=== PATIENT | female | born 1945 | race Caucasian/White ===

== ENCOUNTER 2016-08-05 15:31 | Inpatient (IN) ==
[2016-08-05] MEDS: *HR* OxyCODONE Immed Rel 5 MG TABLET PO PRN ×3 (16:01→23:54)
[2016-08-05] MEDS: *HR* Enoxaparin 40 MG/0.4 ML SYRINGE SQ SCH (17:02)
[2016-08-05 17:53] LABS: Bilirubin,Urine Negative (Negative); Blood,Urine Small (Negative); Clarity,Urine Slightly Cloudy (Clear); Color,Urine Amber (Yellow); Glucose,Urine (UA) Normal (Normal); Ketones,Urine Trace mg/dL (Negative); Leukocyte Esterase,Urine Moderate (Negative); Nitrite,Urine Positive (Negative); Protein,Urine 30 mg/dL (Neg-Trace); Urobilinogen,Urine Normal (Normal)
[2016-08-05 17:58] LABS: Bacteria,Urine Many per hpf (None-Few); RBC,Urine 0-3 per hpf (0-3); Squamous Epithelial Cell,Urine Many per lpf (None-Few); WBC,Urine TNTC per hpf (0-3)
[2016-08-06] MEDS: *HR* OxyCODONE Immed Rel 5 MG TABLET PO PRN ×5 (04:06→21:33)
[2016-08-06] MEDS: *HR* Enoxaparin 40 MG/0.4 ML SYRINGE SQ SCH (04:06)
[2016-08-06 05:18] LABS: Basophils # 0.1 K/mcL (0.0-0.2); Basophils % 0.4 %; Eosinophils # 0.8 K/mcL (0.0-0.6); Eosinophils % 5.9 %; Hematocrit 30.3 % (35.3-44.9); Hemoglobin 9.8 g/dL (11.5-15.4); Immature Granulocytes % 0.8 % (0-4); Lymphocytes # 2.5 K/mcL (0.6-4.6); Lymphocytes % 17.8 %; Mean Corpuscular HGB Conc 32.3 g/dL (31.6-35.5); Mean Corpuscular Hemoglobin 28.8 pg (28.0-33.3); Mean Corpuscular Volume 89.1 fL (83.0-100.0); Mean Platelet Volume 9.6 fL (9.4-12.4); Neutrophils # 9.5 K/mcL (1.6-8.9); Platelet Count 242 K/mcL (140-400); Red Cell Distribution Width 14.4 % (11.5-14.5); Segmented Neutrophils % 68.1 %
[2016-08-06 05:29] LABS: BUN/Creatinine Ratio 19 (6-26); Blood Urea Nitrogen 14 mg/dL (7-20); Carbon Dioxide 24 mEq/L (19-29); Chloride 104 mEq/L (98-109); Glucose 118 mg/dL (70-99); Osmolality,Calculated 288 (280-300); Potassium 3.7 mEq/L (3.5-4.5); Sodium 138 mEq/L (136-145); eGFR For African Americans > 60 (> 60); eGFR For Non-African Americans > 60 (> 60)
[2016-08-06] MEDS: Aspirin Enteric Coated 325 MG Tablet PO SCH (08:19)
[2016-08-06] MEDS: *HR* Metformin 500 MG TABLET PO SCH (08:20)
[2016-08-06] MEDS: Acetaminophen 325 MG TABLET PO SCH (08:20)
--- NOTE | 2016-08-06 10:28 | Internal Med History&Physical ---
Date of Encounter: 08/06/16 Time of Encounter: 10:26 Assessment and Plan (1) S/P TKR (total knee replacement) Current visit: Yes Status: Acute We will hold off therapy while we will initiate anticoagulation for DVT. Qualifiers: Laterality: right Qualified Code(s): Z96.651 - Presence of right artificial knee joint (2) DVT (deep venous thrombosis) Current visit: Yes Status: Acute We will initiate Lovenox 1 mg/kg subcutaneous. Qualifiers: DVT location: lower extremity Affected thrombotic vein of extremity: tibial Laterality: right Chronicity: acute Qualified Code(s): I82.441 - Acute embolism and thrombosis of right tibial vein Internal Medicine - H&P: HPI Admitted From: Intrahospital Transfer Plans for Post Hospital Care: Home History of present illness: Ms. Higuera is a 70 year old female transferred to this facility status post right total knee replacement. On arrival last night the patient complained of right knee postop pain. She also complains of swelling and calf pain. Doppler studies was ordered. Results today noted a right saphenous DVT. Today the patient does not complain of any chest pain or shortness of breath. Pain is 5 out of 10. No nausea no vomiting. Past Med Surg Social Fam HX - Past Medical History Medical history: diabetes Psychiatric history: no psych history - Past Surgical History Surgical History: cholecystectomy, hysterectomy, knee replacement - Social History Smoking Status: Former smoker Smokeless Tobacco Status: No Alcohol use: occasionally Drug use: none Internal Medicine - H&P: Meds Aspirin Enteric Coated [Aspirin EC] 325 mg PO DAILY #21 tablet. 08/01/16 [Rx] OxyCODONE Immed Rel [Roxicodone 5 MG] 5 - 10 mg PO Q6HR PRN #40 tablet 08/01/16 [Rx] Acetaminophen [Tylenol] 650 mg PO DAILY 08/02/16 [History] Metformin [Glucophage] 500 mg PO DAILY 08/02/16 [History] Omeprazole 20 mg PO DAILY 08/02/16 [History] Allergies Penicillins [PCN] Allergy (Mild, Verified 08/02/16 10:53) Hives All Systems PM: A 10-system review of systems was performed and is negative for pertinent findings except as documented above in the HPI. - Constitutional Constitutional: fatigue, lethargy, malaise - Cardiovascular Cardiovascular ROS IM: no chest pain, no diaphoresis, no dyspnea, no lightheadedness, no palpitations, no syncope - Respiratory Respiratory: no cough, no dyspnea, no wheezing, no excessive phlegm production - Gastrointestinal Gastrointestinal: no abdominal pain, no diarrhea, no hematemesis, no hematochezia, no melena, no nausea, no vomiting - Musculoskeletal Musculoskeletal ROS IM: arthralgias, joint swelling, limited range of motion - Integumentary Integumentary IM: erythema - Constitutional Vitals: Temp Pulse Resp BP Pulse Ox 97.8 F 92 16 102/65 96 08/06/16 07:00 08/06/16 07:00 08/06/16 07:00 08/06/16 07:00 08/06/16 07:00 General appearance: Present: A&O X 3, morbidly obese, pleasant, no acute distress - Respiratory Respiratory exam: Present: CTAB. Absent: accessory muscle use, rales, rhonchi, wheezes - Cardiovascular Cardiovascular exam: Present: RRR, +S1, +S2. Absent: diastolic murmur, gallop, rubs, systolic murmur - GI/Abdominal GI/Abdominal exam: Present: normal bowel sounds, soft, no peritoneal signs. Absent: distended, tenderness - Expanded Lower Extremities Exam Lower Leg exam: Present: erythema, Dominic's sign, swelling, tenderness Internal Med - H&P Results - Labs CBC & Chem 7: 08/06/16 05:00 08/06/16 05:00 Labs: Short CBC 08/06/16 Range/Units 05:00 WBC 14.0 H (4.3-11.1) K/mcL Hgb 9.8 L (11.5-15.4) g/dL Hct 30.3 L (35.3-44.9) % Plt Count 242 (140-400) K/mcL Neutrophils # 9.5 H (1.6-8.9) K/mcL BMP 08/06/16 05:00 Sodium 138 Potassium 3.7 Chloride 104 Carbon Dioxide 24 BUN 14 Creatinine 0.73 Glucose 118 H Calcium 9.0 Urine 08/05/16 Range/Units 17:45 Urine Color Wendy A (Yellow) Urine Clarity Slightly Cloudy A (Clear) Urine pH 6.0 (5.0-8.0) pH Units Ur Specific [place] 1.020 (1.010-1.025) Urine Protein 30 H (Neg-Trace) mg/dL Urine Glucose (UA) Normal (Normal) mg/dL
[2016-08-06] MEDS: *HR* Enoxaparin 120 MG/0.8 ML SYRINGE SQ SCH ×2 (12:47→21:33)
[2016-08-06] MEDS ORDERED: Ondansetron ODT 4 MG TAB.RAPDIS SL PRN (13:45)
[2016-08-07] MEDS: *HR* OxyCODONE Immed Rel 5 MG TABLET PO PRN ×4 (02:51→20:37)
[2016-08-07] MEDS: Acetaminophen 325 MG TABLET PO SCH (09:30)
[2016-08-07] MEDS: *HR* Metformin 500 MG TABLET PO SCH (09:31)
[2016-08-07] MEDS: Aspirin Enteric Coated 325 MG Tablet PO SCH (09:31)
[2016-08-07] MEDS: *HR* Enoxaparin 120 MG/0.8 ML SYRINGE SQ SCH ×2 (09:32→20:38)
--- NOTE | 2016-08-07 13:23 | Venous Imaging Report ---
LE Venous Duplex Patient Name:Karishma Higuera Order Number:[id number] Procedure Date:08/06/2016 Date:1945ge:70 yrs Gender:Female Location:[facility] Room #: 104B Heating And Ventilating Drafter:Luz Maria Jauregui RVT, RDCS Referring MD:Herbert Loyola DO unloader:Catherine Cleaning, HUMAN SERVICES PROFESSIONAL Reading MD:Farhat Jimenez MD Primary Indications:swelling Secondary Indications: Risk Factors Yes/No Hx of DVT No Hormone Replacement Therapy No Anticoagulants No Impressions: Lower extremity abnormal deep exam: right peroneal vein and posterior tibial vein demonstrates acute thrombosis. Lower extremity abnormal superficial exam: right great saphenous BK demonstrates acute thrombosis. Recommendations: Test completed on 08/06/2016 at 10:12:27 am. Critical findings reported to Dr. Sorensen by phone at 10:12:36 am on 08/06/2016 by Luz Maria Jauregui RVT, RDCS. Findings Venous Duplex Results: Right: Venous imaging of the lower extremity reveals full patency and normal vessel compressibility of the right distal iliac, right common femoral, right superficial femoral, right popliteal, right saphenofemoral junction, right great saphenous above knee and right lesser saphenous. Doppler signals in the evaluated veins were normal. There is an acute occlusive thrombus seen in the right posterior tibial. It demonstrates an incompressible vein. Flow was absent and it did not augment. There is an acute occlusive thrombus seen in the right peroneal. It demonstrates an incompressible vein. Flow was absent and it did not augment. There is an acute occlusive thrombus seen in the right great saphenous below knee. It demonstrates an incompressible vein. Flow was absent and it did not augment. Left: Venous imaging of the lower extremity reveals full patency and normal vessel compressibility of the left common femoral. Doppler signals in the evaluated veins were normal. Lower Extremity Venous Duplex Side Vein Compress Spontaneous Flow Augment Diameter (cm) Depth (cm) Right Distal Iliac Normal Yes Phasic Yes Right Common Femoral Normal Yes Phasic Yes Right Superficial Femoral Normal Yes Phasic Yes Right Popliteal Normal Yes Phasic Yes Right Posterior Tibial None no Absent no Right Peroneal None no Absent no Right Saphenofemoral Junction Normal Yes Phasic Yes Right Great Saphenous AK Normal Yes Phasic Yes Right Great Saphenous BK None no Absent no Right Lesser Saphenous Normal Yes Phasic Yes Left Common Femoral Normal Yes Phasic Yes Updated by Farhat Jimenez MD on 08/07/2016 1:18:20 PM electronically signed on 08/07/2016 1:18:53 PM with status of Final
--- NOTE | 2016-08-07 17:35 | Internal Med Progress Note ---
Date of Encounter: 08/07/16 Time of Encounter: 17:30 - Assessment and plan (1) S/P TKR (total knee replacement) Current Visit: Yes Status: Acute Assessment and plan: PT OT planned to improve gait transfer balance Qualifiers: Laterality: right Qualified Code(s): Z96.651 - Presence of right artificial knee joint (2) DVT (deep venous thrombosis) Current Visit: Yes Status: Acute Assessment and plan: Less swelling and tenderness. On Lovenox. PT OT being held Qualifiers: DVT location: lower extremity Affected thrombotic vein of extremity: tibial Laterality: right Chronicity: acute Qualified Code(s): I82.441 - Acute embolism and thrombosis of right tibial vein (3) UTI (urinary tract infection) Current Visit: Yes Status: Acute Assessment and plan: We will start Cipro. Gram-negative Escherichia coli on culture Qualifiers: Urinary tract infection type: acute cystitis Hematuria presence: without hematuria Qualified Code(s): N30.00 - Acute cystitis without hematuria - Time Spent With Patient less than 15 minutes - Subjective Interval history: Feeling better today. Less pain on the right knee. No fever. No shortness of breath. No chest pain. Good oral intake. - Constitutional Vitals: Temp Pulse Resp BP Pulse Ox 97.4 F L 84 14 110/62 97 08/07/16 07:00 08/07/16 07:00 08/07/16 07:00 08/07/16 07:00 08/07/16 07:00 General appearance: Present: A&O X 3, morbidly obese, pleasant, no acute distress - Respiratory Respiratory exam: Present: CTAB. Absent: accessory muscle use, rales, rhonchi, wheezes - Cardiovascular Cardiovascular exam: Present: RRR, +S1, +S2. Absent: diastolic murmur, gallop, rubs, systolic murmur - GI/Abdominal GI/Abdominal exam: Present: normal bowel sounds, soft, no peritoneal signs. Absent: distended, tenderness - Expanded Lower Extremities Exam Knee exam: Present: erythema, swelling, tenderness. Absent: warmth - Neurological Exam Neurological exam: Present: CN II-XII intact, oriented X3, no focal deficits. Absent: pronater drift, facial droop, speech deficit Internal Medicine: Result - Labs CBC & Chem 7: 08/06/16 05:08/06/16 05:00 Consult Discharge Plan - Plan Referrals: Catherine Cleaning, [place] [Primary Care Provider] -
[2016-08-08] MEDS: *HR* OxyCODONE Immed Rel 5 MG TABLET PO PRN ×4 (03:33→19:53)
[2016-08-08] MEDS: Acetaminophen 325 MG TABLET PO SCH (08:47)
[2016-08-08] MEDS: *HR* Metformin 500 MG TABLET PO SCH (08:47)
[2016-08-08] MEDS: Aspirin Enteric Coated 325 MG Tablet PO SCH (08:47)
[2016-08-08] MEDS: *HR* Enoxaparin 120 MG/0.8 ML SYRINGE SQ SCH ×2 (09:02→19:54)
--- NOTE | 2016-08-08 09:05 | Internal Med Progress Note ---
Date of Encounter: 08/08/16 Time of Encounter: 09:04 - Assessment and plan (1) S/P TKR (total knee replacement) Current Visit: Yes Status: Acute Assessment and plan: We will tryvisine for her complaint of right eye pain and itchiness PT OT planned to improve gait transfer balance Qualifiers: Laterality: right Qualified Code(s): Z96.651 - Presence of right artificial knee joint (2) DVT (deep venous thrombosis) Current Visit: Yes Status: Acute Assessment and plan: Less swelling and tenderness. On Lovenox. PT OT being held Qualifiers: DVT location: lower extremity Affected thrombotic vein of extremity: tibial Laterality: right Chronicity: acute Qualified Code(s): I82.441 - Acute embolism and thrombosis of right tibial vein (3) UTI (urinary tract infection) Current Visit: Yes Status: Acute Assessment and plan: We will start Cipro. Gram-negative Escherichia coli on culture Qualifiers: Urinary tract infection type: acute cystitis Hematuria presence: without hematuria Qualified Code(s): N30.00 - Acute cystitis without hematuria - Time Spent With Patient less than 15 minutes - Subjective Interval history: Complains of itchiness to the right eye. No blurred vision. No headache. Feeling better today. Less pain on the right knee. No fever. No shortness of breath. No chest pain. Good oral intake. - Constitutional Vitals: Temp Pulse Resp BP Pulse Ox 98.2 F 79 18 108/68 93 L 08/08/16 07:00 08/08/16 07:00 08/08/16 07:00 08/08/16 07:00 08/08/16 07:00 General appearance: Present: A&O X 3, morbidly obese, pleasant, no acute distress - Eye Eye exam: Present: PERRL, conjuntiva pink, sclera anicteric Pupils: Present: PERRL - Respiratory Respiratory exam: Present: CTAB. Absent: accessory muscle use, rales, rhonchi, wheezes - Cardiovascular Cardiovascular exam: Present: RRR, +S1, +S2. Absent: diastolic murmur, gallop, rubs, systolic murmur - GI/Abdominal GI/Abdominal exam: Present: normal bowel sounds, soft, no peritoneal signs. Absent: distended, tenderness - Expanded Lower Extremities Exam Knee exam: Present: swelling, tenderness. Absent: erythema, warmth Internal Medicine: Result - Labs CBC & Chem 7: 08/06/16 05:00 08/06/16 05:00 Consult Discharge Plan - Plan Referrals: Catherine Cleaning CNP [Primary Care Provider] -
[2016-08-08] MEDS: Tetrahydrozoline 15 ML BOTTLE RIGHT EYE PRN (21:37)
[2016-08-09] MEDS: *HR* OxyCODONE Immed Rel 5 MG TABLET PO PRN ×5 (02:32→23:42)
[2016-08-09 05:30] LABS: Basophils # 0.1 K/mcL (0.0-0.2); Basophils % 0.4 %; Eosinophils # 0.9 K/mcL (0.0-0.6); Eosinophils % 7.6 %; Hematocrit 29.9 % (35.3-44.9); Hemoglobin 9.6 g/dL (11.5-15.4); Immature Granulocytes % 1.1 % (0-4); Lymphocytes # 3.1 K/mcL (0.6-4.6); Lymphocytes % 27.1 %; Mean Corpuscular HGB Conc 32.1 g/dL (31.6-35.5); Mean Corpuscular Hemoglobin 28.7 pg (28.0-33.3); Mean Corpuscular Volume 89.3 fL (83.0-100.0); Mean Platelet Volume 9.6 fL (9.4-12.4); Monocytes # 0.8 K/mcL (0.0-1.3); Monocytes % 7.1 %; Neutrophils # 6.5 K/mcL (1.6-8.9); Platelet Count 308 K/mcL (140-400); Red Blood Count 3.35 M/mcL (3.82-4.97); Red Cell Distribution Width 14.3 % (11.5-14.5); Segmented Neutrophils % 56.7 %
[2016-08-09 05:37] LABS: BUN/Creatinine Ratio 19 (6-26); Blood Urea Nitrogen 13 mg/dL (7-20); Calcium 9.1 mg/dL (8.6-10.8); Carbon Dioxide 22 mEq/L (19-29); Chloride 106 mEq/L (98-109); Glucose 114 mg/dL (70-99); Osmolality,Calculated 291 (280-300); Sodium 140 mEq/L (136-145); eGFR For African Americans > 60 (> 60); eGFR For Non-African Americans > 60 (> 60)
[2016-08-09] MEDS: Aspirin Enteric Coated 325 MG Tablet PO SCH (08:45)
[2016-08-09] MEDS: *HR* Metformin 500 MG TABLET PO SCH (08:45)
[2016-08-09] MEDS: Tetrahydrozoline 15 ML BOTTLE RIGHT EYE PRN ×2 (08:51→21:29)
[2016-08-09] MEDS: Acetaminophen 325 MG TABLET PO SCH (08:51)
[2016-08-09] MEDS: *HR* Enoxaparin 120 MG/0.8 ML SYRINGE SQ SCH ×2 (10:28→21:27)
--- NOTE | 2016-08-09 11:21 | Internal Med Progress Note ---
Date of Encounter: 08/09/16 Time of Encounter: 11:20 - Subjective Interval history: I will examine the patient's legs today there is no erythema or tenderness to the Good Start Mild PT Back Today - Constitutional Vitals: Temp Pulse Resp BP Pulse Ox 98.3 F 74 18 144/97 94 L 08/09/16 07:15 08/09/16 07:15 08/09/16 07:15 08/09/16 07:15 08/09/16 07:15 General appearance: Present: A&O X 3, morbidly obese, pleasant, no acute distress - Head Head exam: Present: atraumatic, normocephalic - Neck Neck exam general surgery: Present: supple, trachea midline. Absent: lymphadenopathy - Respiratory Respiratory exam: Present: CTAB. Absent: accessory muscle use, rales, rhonchi, wheezes Additional comments: Patient denies any shortness of breath. There is no chest pain - Cardiovascular Cardiovascular exam: Present: RRR, +S1, +S2. Absent: diastolic murmur, gallop, rubs, systolic murmur Internal Medicine: Result - Labs CBC & Chem 7: 08/09/16 05:10 08/09/16 05:10 Labs: Short CBC 08/09/16 Range/Units 05:10 WBC 11.4 H (4.3-11.1) K/mcL Hgb 9.6 L (11.5-15.4) g/dL Hct 29.9 L (35.3-44.9) % Plt Count 308 (140-400) K/mcL Neutrophils # 6.5 (1.6-8.9) K/mcL BMP 08/09/16 05:10 Sodium 140 Potassium 4.0 Chloride 106 Carbon Dioxide 22 BUN 13 Creatinine 0.68 Glucose 114 H Calcium 9.1 Consult Discharge Plan - Plan Referrals: Catherine Cleaning, DANCE PROFESSOR [Primary Care Provider] -
[2016-08-10] MEDS: *HR* OxyCODONE Immed Rel 5 MG TABLET PO PRN ×3 (08:32→21:23)
[2016-08-10] MEDS: Aspirin Enteric Coated 325 MG Tablet PO SCH (08:32)
[2016-08-10] MEDS: Acetaminophen 325 MG TABLET PO SCH (08:32)
[2016-08-10] MEDS: *HR* Metformin 500 MG TABLET PO SCH (08:32)
[2016-08-10] MEDS: *HR* Enoxaparin 120 MG/0.8 ML SYRINGE SQ SCH ×2 (08:38→21:23)
--- NOTE | 2016-08-10 13:51 | Internal Med Progress Note ---
Date of Encounter: 08/10/16 Time of Encounter: 13:49 - Assessment and plan (1) DVT (deep venous thrombosis) Current Visit: Yes Status: Acute Assessment and plan: I noticed that the patient had a red, tender K the ultrasound showed positive DVT. She was started on Lovenox Qualifiers: DVT location: lower extremity Affected thrombotic vein of extremity: tibial Laterality: right Chronicity: acute Qualified Code(s): I82.441 - Acute embolism and thrombosis of right tibial vein (2) S/P TKR (total knee replacement) Current Visit: Yes Status: Acute Assessment and plan: Patient was here for total knee replacement due to osteoarthritis. And is participating in therapy now. Qualifiers: Laterality: right Qualified Code(s): Z96.651 - Presence of right artificial knee joint - Time Spent With Patient less than 15 minutes - Subjective Interval history: Outpatient seating smiling dissipating end of therapy. And ambulating down the rodriguez or walker. Making good progress. - Constitutional Vitals: Temp Pulse Resp BP Pulse Ox 97.7 F 75 18 115/64 94 L 08/10/16 07:00 08/10/16 07:00 08/10/16 07:00 08/10/16 07:00 08/10/16 07:00 General appearance: Present: A&O X 3, morbidly obese, pleasant, no acute distress - Head Head exam: Present: atraumatic, normal inspection, normocephalic - Neck Neck exam general surgery: Present: supple, trachea midline. Absent: lymphadenopathy - Respiratory Respiratory exam: Present: CTAB. Absent: accessory muscle use, rales, rhonchi, wheezes - Cardiovascular Cardiovascular exam: Present: RRR, +S1, +S2. Absent: diastolic murmur, gallop, rubs, systolic murmur Internal Medicine: Result - Labs CBC & Chem 7: 08/09/16 05:10 08/09/16 05:10 Labs: Labs stable Consult Discharge Plan - Plan Referrals: Catherine Cleaning CNP [Primary Care Provider] -
[2016-08-10] MEDS: Tetrahydrozoline 15 ML BOTTLE RIGHT EYE PRN (21:35)
[2016-08-11] MEDS: *HR* OxyCODONE Immed Rel 5 MG TABLET PO PRN ×3 (03:35→12:57)
[2016-08-11 07:06] VITALS: BP 109/56
[2016-08-11] MEDS: Aspirin Enteric Coated 325 MG Tablet PO SCH (08:06)
[2016-08-11] MEDS: *HR* Metformin 500 MG TABLET PO SCH (08:06)
[2016-08-11] MEDS: Acetaminophen 325 MG TABLET PO SCH (08:06)
[2016-08-11] MEDS: *HR* Enoxaparin 120 MG/0.8 ML SYRINGE SQ SCH (08:46)
--- NOTE | 2016-08-11 11:26 | Discharge Summary ---
Date of Encounter: 08/11/16 Time of Encounter: 11:24 - Discharge Diagnosis (1) DVT (deep venous thrombosis) Priority: Secondary Status: Acute Qualifiers: DVT location: lower extremity Affected thrombotic vein of extremity: tibial Laterality: right Chronicity: acute Qualified Code(s): I82.441 - Acute embolism and thrombosis of right tibial vein (2) S/P TKR (total knee replacement) Priority: Primary Status: Acute Qualifiers: Laterality: right Qualified Code(s): Z96.651 - Presence of right artificial knee joint - Discharge Medications Home Medications: Aspirin Enteric Coated [Aspirin EC] 325 mg PO DAILY #21 tablet. 08/01/16 [Rx] OxyCODONE Immed Rel [Roxicodone 5 MG] 5 - 10 mg PO Q6HR PRN #40 tablet 08/01/16 [Rx] Acetaminophen [Tylenol] 650 mg PO DAILY 08/02/16 [History] Metformin [Glucophage] 500 mg PO DAILY 08/02/16 [History] Omeprazole 20 mg PO DAILY 08/02/16 [History] Allergies/Adverse Reactions: Allergies Penicillins [PCN] Allergy (Mild, Verified 08/02/16 10:53) Hives Date of admission: 08/05/16 15:36 Primary care physician: Catherine Cleaning CNP Consults: 08/05/16 15:42 Consult to Occupational Therapy [CONS] Routine Comment: Evaluate, develop and implement POC Consult to Physical Therapy [CONS] Routine Comment: Evaluate, develop and implement POC Consult to Recreational Therapy [CONS] Routine Comment: Evaluate, develop and implement POC Consult to Experimental Mechanic Electrical [CONS] Routine Reason for SW Consult: Rehab 08/05/16 16:10 Consult to Physical Medicine/Rehab [CONS] Routine Reason for Consult: s/p rtk Call Completed: Yes Discharging clinician: Herbert Loyola Anticipated date of discharge: 08/11/16 - Patient Status Disposition: Home, Self-Care Condition: Good Functional capacity at discharge: uses cane/walker Overall status at discharge: patient is progressing back to baseline - Discharge Instructions Instructions: Urinary Tract Infection in Women (DC) Follow Up With: Eros Bella MD [Partnered Physician] - 08/12/16 9:45 am (next appoint 08/31 850am) Catherine Cleaning CNP [Primary Care Provider] - - Diet and Activity Activity: ambulate only with your walker Diet: advance to your usual diet Interval History: Patient was brought significant [facility] [place] [place] for rehabilitation after a total knee replacement. Hospital course: Ms. Higuera is a 70 year old female Patient is able to do household distances. She is anticipated therapy with PT OT and TR. Exam in the rodriguez with her walker. She did she have paroxysmal run of atrial fib which responded to a semi-loading dose of Lanoxin. She also has an appointment Dr. Gusman the wallet assembler on Tuesday. - Time Spent with Patient Total time spent providing and/or coordinating discharge services: - Constitutional Vitals: Temp Pulse Resp BP Pulse Ox 97.4 F L 78 16 109/56 96 08/11/16 07:00 08/11/16 07:00 08/11/16 07:00 08/11/16 07:00 08/11/16 07:00 General appearance: Present: A&O X 3, morbidly obese, pleasant, no acute distress - Head Head exam: Present: atraumatic, normal inspection, normocephalic - Neck Neck exam general surgery: Present: supple, trachea midline. Absent: lymphadenopathy - Respiratory Respiratory exam: Present: CTAB. Absent: accessory muscle use, rales, rhonchi, wheezes - Cardiovascular Cardiovascular exam: Present: RRR, +S1, +S2. Absent: diastolic murmur, gallop, rubs, systolic murmur - GI/Abdominal GI/Abdominal exam: Present: normal bowel sounds, soft, no peritoneal signs. Absent: distended, tenderness
== END 2016-08-11 14:38 | disposition home or self-care (01) | DRG 560 ==
LOC: INPGRE 15:36
PROVIDERS: ADMIT Internal Medicine; ATTEND Internal Medicine